=== PATIENT | female | born 1980 | race African-American/Black ===

== ENCOUNTER → 2016-12-16 | Outpatient (CLI) | payer MEDICAID ==
--- NOTE | 2016-12-17 08:22 | DI ---
Indication: ITS.REASON: M25.5611 RT KNEE PAIN PROCEDURE: MRI KNEE RIGHT W/O CONTRAST: Encounter: Initial Comparison: None Technique: Multiplanar multisequence MR imaging of the right knee was performed without contrast. Findings: Irregular tearing of the anterior horn lateral meniscus. The posterior horn appears intact. The medial meniscus is intact. The ACL and PCL are intact. The MCL and lateral collateral ligament complex are intact. The extensor mechanism is maintained. No acute fracture. Bone marrow signal intensity is unremarkable for age. The cartilage of the medial, lateral and patellofemoral compartments is normal. Small joint effusion. Tiny Allen's cyst. Muscular signal intensity is normal. Impression: Anterior horn lateral meniscal tear. .
== END ==
LOC: IMA 17:34
PROVIDERS: ATTEND Family Medicine
DX: S83.281A Other tear of lateral meniscus, current injury, right knee, initial encounter (principal); M25.561 Pain in right knee

== ENCOUNTER 2016-12-31 05:55 | Day surgery (SDC) | payer MEDICAID ==
[~2016-12-31] VITALS: Ht 157.5 cm; Wt 92.3 kg
[2016-12-31] VITALS (14 sets, daily range): BP systolic 129–176; BP diastolic 81–106; PULSE 76–98; RESP 16–28; TEMP 97.3–98.4; O2SAT 94–100; Ht 157.5 cm; Wt 92.3 kg
[~2016-12-31 05:55] MED LIST: LISI-621 PO
--- OUTSIDE RECORDS SUMMARY | 2016-12-31 05:59 | XMS REPORT ---
Author Author Татьяна Soriano Organization [employer] Address Unknown Phone Unavailable Care Team Providers Care Clicking Machine Operator Name Role Phone Татьяна Soriano Unavailable Allergies No Known Allergies Problems Problem Type Condition ICD-9 Code Onset Dates Condition Status Problem Fibromyalgia (Myalgia and Myositis) 729.1 Active Problem Unspecified myalgia and myositis 729.1 Active Problem Hypertension, unspecified (essential) 401.9 Active Problem Major Depressive Disorder 311 Active Medications No Known Medications Results No Known Results Summary Purpose [employer] Submission
--- OUTSIDE RECORDS SUMMARY | 2016-12-31 05:59 | XMS REPORT ---
Author Author Tobias Wells [facility] [employer] Address Unknown Phone Unavailable Care Team Providers Care Wire Web Worker Name Role Phone Tobias Wells CP Unavailable Allergies, Adverse Reactions, Alerts Substance Reaction Event Type N.K.D.A. Info Not Available Non Drug Allergy Problems Problem Type Condition ICD-9 Code Onset Dates Condition Status Assessment Major Depressive Disorder 311 Active Problem Fibromyalgia (Myalgia and Myositis) 729.1 Active Problem Unspecified myalgia and myositis 729.1 Active Problem Hypertension, unspecified (essential) 401.9 Active Assessment Fibromyalgia (Myalgia and Myositis) 729.1 Active Assessment Unspecified myalgia and myositis 729.1 Active Problem Major Depressive Disorder 311 Active Assessment Hypertension, unspecified (essential) 401.9 Active Medications Medication Code System Code Instructions Start Date End Date Status Dosage Celexa [facility] [address]-46 20 MG Orally Once a day Jun 22, 2014 Active 1 tablet Xanax [facility] [address]-84 1 MG Orally daily prn Active 1 tablet Hydrochlorothiazide [facility] [address]-90 25 MG Orally Once a day Active 1 tablet Toprol XL [facility] [address]-57 50 MG Orally Once a day Active 1 tablet HydrOXYzine HCl [facility] [address]-28 10 MG Orally at bedtime prn Active 1 tablet Gabapentin [facility] [address]-93 300 MG Orally Three times a day Jun 22, 2014 Active 1 capsule Lisinopril [facility] [address]-03 40 MG Orally Once a day Active 1 tablet Percocet [facility] [address]-88 10-325 MG Orally TID Active 1 tablet as needed Procedures Procedure Coding System Code Date Office Visit, New Pt., Level 3 CPT-4 18849 Jun 22, 2014 Vital Signs Date/Time: Jun 22, 2014 BMI 37.50 Index Weight 198lb 8oz lbs Height 61 in Blood Pressure Diastolic 93 mm Hg Blood Pressure Systolic 150 mm Hg Temperature 98.1 F Cardiac Monitoring Heart Rate 88 /min Results No Known Results Summary Purpose [employer] Submission
--- OUTSIDE RECORDS SUMMARY | 2016-12-31 05:59 | XMS REPORT | Referral Summary ---
Author Author [facility] Organization [facility] Address Unknown Phone Unavailable Care Team Providers Care Parachute Cushion Installer Name Role Phone No PCP, Pt States Primary Care Physician [phone] Encounter VC Date(s): 08/18/15 - 08/18/15 [facility] [address] [place] [address] [phone] Discharge Diagnosis: Pain, dental Discharge Disposition: 01-Home or Self Care Attending Physician: Rosendo Guerra MD Admitting Physician: Rosendo Guerra MD Vital Signs Most recent to 1 oldest [Reference Range]: Temperature Oral 37.3 degC [35.8-37.3 degC] (08/18/15 7:41 PM) Peripheral Pulse 88 bpm Rate [60-100 bpm] (08/18/15 7:41 PM) Respiratory Rate 16 br/min [14-20 br/min] (08/18/15 7:41 PM) Blood Pressure 186/113 mmHg [90-140/60-90 mmHg] *HI* (08/18/15 7:41 PM) SpO2 98 % (08/18/15 7:41 PM) Problem List Condition Effective Dates Status Health Status Informant HTN Active patient (hypertension)(Confi rmed) Allergies, Adverse Reactions, Alerts Substance Reaction Severity Status codeine Hives Mild Active Medications amoxicillin 500 mg oral tablet 500 mg 1 tabs, Oral, TID, X 10 days, # 30 tabs, 0 Refill(s) Start Date: 08/18/15 Stop Date: 08/28/15 Status: Ordered hydrochlorothiazide Oral, Daily, 0 Refill(s) Start Date: 05/01/15 Status: Ordered ibuprofen 800 mg oral tablet 800 mg 1 tabs, Oral, q8hr, # 30 tabs, 0 Refill(s) Start Date: 08/18/15 Status: Ordered lisinopril Oral, Daily, 0 Refill(s) Start Date: 05/01/15 Status: Ordered [place] 5 mg-325 mg oral tablet 1 tabs, Oral, q6hr, as needed for pain, # 15 tabs, 0 Refill(s) Start Date: 08/18/15 Stop Date: 08/25/15 Status: Ordered Results No data available for this section Immunizations No data available for this section Procedures No data available for this section Social History Social History Type Response Smoking Status Never smoker Assessment and Plan No data available for this section
--- OUTSIDE RECORDS SUMMARY | 2016-12-31 06:00 | XMS REPORT | Continuity of Care Document ---
Author Author [facility] Organization [facility] Address Unknown Phone Unavailable Allergies Active Description Code Type Severity Reaction Onset Reported/Identified Relationship to Patient Clinical Status Yes codeine codeine Drug Allergy Mild RASH 01/22/2011 Medications Problems Procedures Results Test Result Range CBC W/DIFF - 09/19/16 07:55 BASOPHIL # 0.0 k/cumm 0.0-0.2 BASOPHIL % 1 % 0-1 EOSINOPHIL # 0.0 k/cumm 0.1-0.5 EOSINOPHIL % 1 % 2-4 GRANULOCYTE # 3.7 k/cumm 2.0-9.0 GRANULOCYTE % 56 % 50-75 LYMPHOCYTE # 2.2 k/cumm 1.0-4.0 LYMPHOCYTE % 33 % 20-30 MEAN CELL HGB 28.8 pg 27.0-33.0 MEAN CELL HGB CONCENTRATION 33.1 g/dL 32.0-37.0 MEAN CELL VOLUME 87.2 fl 80.0-100.0 MONOCYTE # 0.7 k/cumm 0.1-1.0 MONOCYTE % 10 % 4-6 RED BLOOD CELL 4.75 m/cumm 4.00-6.00 RED CELL DISTRIBUTION WIDTH 13.4 % 11.0- 15.6 WHITE BLOOD CELL 6.6 k/cumm 5.0-10.0 HEMOGLOBIN 13.7 gm/dL 12.0-16.0 HEMATOCRIT 41.4 % 37.0-47.0 PLATELET COUNT 345 k/cumm 150-400 METABOLIC PANEL, BASIC - 09/19/16 07:55 POTASSIUM 4.5 mmol/L 3.5-5.3 EST GFR (MDRD) > 60 mL/min > 59 ANION GAP 10 mmol/L 5-15 EST CrCl (CG) > 60 mL/min > 59 GLUCOSE 89 mg/dL 70-99 CALCIUM 9.1 mg/dL 8.5-10.1 BLOOD UREA NITROGEN 12 mg/dL 7-20 CREATININE 0.8 mg/dL 0.6-1.0 SODIUM 139 mmol/L 135-148 CHLORIDE 107 mmol/L 98-110 CARBON DIOXIDE 22 mmol/L 21-32 D-DIMER QUANT - 09/19/16 07:55 D-DIMER QUANT < 150 ng/mL 0-229 TROPONIN I BEDSIDE - 09/19/16 08:06 METHOD Bedside TROPONIN I < 0.04 ng/mL < 0.11 TROPONIN I BEDSIDE - 09/19/16 10:45 METHOD Bedside TROPONIN I < 0.04 ng/mL < 0.11 Encounters ACCT No. Visit Date/Time Discharge Status Pt. Type Provider Facility Loc./Unit Complaint [id number] 09/19/2016 07:38:00 2016 11:07:00 DIS Emergency Patricia TOLEDO, Yassine [facility] [id number] 02/12/2015 01:19:00 2014 02:14:00 DIS Emergency Néstor TOLEDO, Tobias Bills [facility]
--- OUTSIDE RECORDS SUMMARY | 2016-12-31 06:00 | XMS REPORT | Referral Summary ---
Author Author [facility] Organization [facility] Address Unknown Phone Unavailable Care Team Providers Care House Painter Name Role Phone No PCP, Pt States Primary Care Physician [phone] Encounter VC Date(s): 05/01/15 - 05/01/15 [facility] [address] [place] [address] Final: PAIN IN JOINT INVOLVING LOWER LEG Discharge Disposition: Against Medical Advice Attending Physician: Rosendo Guerra MD Admitting Physician: Rosendo Guerra MD Vital Signs Most recent to 1 oldest [Reference Range]: Temperature Oral 37.4 degC [35.8-37.3 degC] *HI* (05/01/15 6:25 PM) Peripheral Pulse 93 bpm Rate [60-100 bpm] (05/01/15 6:25 PM) Respiratory Rate 24 br/min [14-20 br/min] *HI* (05/01/15 6:25 PM) Blood Pressure 169/119 mmHg [90-140/60-90 mmHg] *HI* (05/01/15 6:25 PM) SpO2 99 % (05/01/15 6:25 PM) Problem List Condition Effective Dates Status Health Status Informant HTN Active patient (hypertension)(Confi rmed) Allergies, Adverse Reactions, Alerts Substance Reaction Severity Status codeine Hives Mild Active Medications hydrochlorothiazide Oral, Daily, 0 Refill(s) Start Date: 05/01/15 Status: Ordered ibuprofen 800 mg oral tablet 800 mg 1 tabs, Oral, q8hr, # 30 tabs, 0 Refill(s) Start Date: 08/18/15 Status: Ordered lisinopril Oral, Daily, 0 Refill(s) Start Date: 05/01/15 Status: Ordered Results No data available for this section Immunizations No data available for this section Procedures No data available for this section Social History Social History Type Response Smoking Status Never smoker Assessment and Plan No data available for this section
[2016-12-31] MEDS ORDERED: ACET-2723 PO (06:46)
[2016-12-31] MEDS ORDERED: LR 1,000 ML IV SCH (07:00)
[2016-12-31] MEDS ORDERED: LIDOCAINE 1% (10mg/ml) 2ml SDV INJ ONE (07:00)
[2016-12-31] MEDS ORDERED: CEFAZOLIN 1 GRAM INJECTION IV ONE (08:00)
--- NOTE | 2016-12-31 08:21 | ANESPREOP ---
Anesthesia Record Date and Time DATE: 12/31/16 TIME: 08:19 Pre-Op Diagnosis right knee meniscus tear Proposed Surgical Procedure RT KNEE SCOPE NPO since: mn Allergies: Coded Allergies: acetaminophen (Verified Allergy, Mild, RASH, 12/31/16) CAN TAKE TYLENOL codeine (Verified Allergy, Mild, RASH, 12/31/16) hydrocodone (Verified Allergy, Mild, RASH, 12/31/16) CAN TAKE TYLENOL Ht/Wt/BMI Height: 5 ' 2.00 " Weight: 92.300 kg BMI: 37.2 kg/m2 Vital Signs Date Time Temp Pulse Resp B/P Pulse Ox O2 Delivery O2 Flow Rate FiO2 12/31/16 07:49 98.2 12/31/16 07:21 176/81 12/31/16 06:34 76 16 97 Room Air Medications Inpatient Medications Current Medications Medications (Trade) Dose Ordered Sig/Delmi Start Time Stop Time Status Last Admin Dose Admin Lactated Ringer's (Lactated Ringers) 1,000 ml @ 50 mls/hr Q20H 12/31/16 07:00 12/31/16 07:02 50 MLS/HR Acetaminophen (Tylenol Extra Strength) 500 Mg Tablet, 1-2 TAB PO Q6H PRN for PAIN/FEVER, (Reported) Last Taken: on 12/29/16 Lisinopril (Lisinopril) 20 Mg Tablet, 2 TAB PO DAILY , (Reported) Last Taken: on 12/30/16 0700 Currently on Beta Han: No Medical/Surgical History Anesthesia PMH: Reports: *Hypertension, Arthritis, Denies: *Diabetes, Anesthesia Reactions (NO AIRWAY ISSUES), Cancer, Clotting Problems, Glaucoma, Malignant Hyperthermia, Renal Disease, Sleep Apnea, Thyroid Disease Smoking Status: Never smoker Alcohol Intake: none HX of Last Menstrual Period: DECEMBER 2016 Past Surgical History Orthopedic Surgeries: Abdominal Surgeries: Genitourinary Surgeries: Cardiac Surgeries: Endocrine Surgeries: Reproductive Surgeries: Yes - C- SESCTION X2 Neurological Surgeries: Ear Surgeries: Nose Surgeries: Throat Surgeries: Other Surgeries: Anesthesia Adverse Reactions: FOUND none Family Hx of Anesthesia Advers: none Hx of Motion Sickness: No Pertinent Findings Test 12/31/16 06:24 Urine Test Negative (NEGATIVE) EKG Rhythm: Sinus Rhythm Physical Exam Respiratory: Bilat breath sounds equal, Lungs clear Cardiovascular: FOUND Regular rate, rhythm, FOUND No murmur Airway Assessment Mallampati Score: I TMD: 3 Fingerbreadths Neck Extension: Good Overall Assessment: No Airway Concerns ASA: 2 Plan Anesthesia Plan: TIVA, LMA, GETA Discussion Discussed risks/options/alternatives of anesthesia and questions answered. Patient consents. Nursing pain assessment noted. Attestation Statement Prior to the delivery of any anesthetic medication, I examined the patient, developed the plan, obtained the patient's consent and discussed the risk and benefits of the procedure with the patient/guardian. PURNIMA ELIZABETH NEEDLE STRAIGHTENER December 31, 2016 08:21
[2016-12-31] MEDS ORDERED: PROPOFOL 500mg 50 ML IV ONE (10:29)
[2016-12-31] MEDS ORDERED: FENTANYL 100mcg/2ml INJECTION ONE ×2 (10:30→11:08)
[2016-12-31] MEDS ORDERED: KETAMINE 500mg/10ml INJECTION ONE (10:31)
[2016-12-31] MEDS ORDERED: PROPOFOL 200mg 20 ML IV ONE ×3 (10:32→11:14)
[2016-12-31] MEDS ORDERED: BUPIVACAINE 0.25% (2.5mg/ml) INJ 30ml SDV ONE (10:41)
[2016-12-31] MEDS ORDERED: MEPERIDINE 100 mg/ml VIAL ONE (10:41)
[2016-12-31] MEDS ORDERED: MIDAZOLAM 2mg/2ml INJECTION ONE (10:45)
[2016-12-31] MEDS ORDERED: GLYCOPYRROLATE 0.4mg/2ml INJECTION ONE (10:54)
[2016-12-31] MEDS ORDERED: LABETALOL 20mg/4ml INJECTION IV ONE (11:09)
[2016-12-31] MEDS ORDERED: TRAM50TA53 PO (11:25)
[2016-12-31] MEDS ORDERED: ONDA4TAB4 PO (11:25)
[2016-12-31] MEDS ORDERED: MELO7.5T12 PO (11:25)
--- NOTE | 2016-12-31 11:26 | PDPROCED ---
Immediate Operative Note DATE: 12/31/16 TIME: 11:26 Preop Diagnosis: RIGHT KNEE LMT Postop Diagnosis: Right knee LMT Surgical Procedures: R Knee Arthroscopy (PLM, limited synovectomy) Surgeon: [place] Nurseryperson: LINDSEY Fox Anesthesia: General Complications: None Estimated Blood Loss see anesthesia DORETHA CARDONA December 31, 2016 11:26
[2016-12-31] MEDS ORDERED: TRAMADOL 50 MG TABLET PO PRN (12:00)
--- NOTE | 2016-12-31 12:01 | ANESPO ---
Post-Op Note Date 12/31/16 Time: 12:00 Status Pt Participated in Evaluation: Pt participated in person Vital Signs Date Time Temp Pulse Resp B/P Pulse Ox O2 Delivery O2 Flow Rate FiO2 12/31/16 11:56 98.2 96 26 129/90 95 Room Air 12/31/16 11:50 6.00 Respiratory Function: Airway patent Cardiovascular Function: Regular pulse Mental Status: Alert/oriented Pain Level Intensity: 0 Hydration: IV infusing Complications during Recovery None apparent Follow-Up Instructions Instructions Per Surgeon HELADIO MORGAN CRNA December 31, 2016 12:01
--- NOTE | 2017-01-01 10:16 | OPNOTEF ---
DATE OF OPERATION 12/31/2016 PREOPERATIVE DIAGNOSIS Right knee lateral meniscus tear. POSTOPERATIVE DIAGNOSES 1. Right knee anterior horn lateral meniscus tear (anterior horn avulsion). 2. Right knee anterior compartment synovitis. PROCEDURE 1. Right knee arthroscopic partial lateral meniscectomy. 2. Right knee arthroscopic limited synovectomy, anterior compartment. SURGEON Moises Talamantes MD IRON CARRIER Adrian Liu PA-C ANESTHESIA TIVA FLUIDS Please refer to Anesthesia chart. EBL Minimal. TOURNIQUET Please refer to Anesthesia chart. COMPLICATIONS None. CONDITION Stable to Recovery Room. DESCRIPTION OF PROCEDURE The patient was identified in the preoperative holding area. The operative extremity was identified and appropriately marked. Risks, benefits, alternatives and potential complications were discussed and informed consent was obtained. The patient was taken to the operating theatre, placed supine on the operating table. Appropriate cardiorespiratory monitors were applied. TIVA anesthesia was administered. A tourniquet was applied high on the right thigh though not yet inflated. The right lower extremity was sterilely prepped and draped in the usual fashion. Surgical time-out was performed, confirmed with myself, the director data and circulating nurse. Preoperative antibiotics were given. Examination under anesthesia revealed full passive range of motion of the right knee. No evidence of instability. The leg was elevated and the tourniquet was inflated. A standard inferolateral portal was established. The arthroscope was inserted and the knee was insufflated with saline. Needle localization was utilized to establish an inferomedial portal and diagnostic examination ensued. Suprapatellar pouch, medial and lateral gutters were found to be free of loose bodies or debris. While visualizing through the lateral gutter, we could see displaced meniscus in the anterior field of view. The posterior aspect of the meniscus and popliteal hiatus otherwise appeared normal when visualized from the lateral gutter. The medial compartment was then entered, noting normal medial articular cartilage and a normal medial meniscus. The intercondylar notch was obscured by the ligamentum as well as fat pad. The ligamentum was released with a shaver and a portion of the fat pad was debrided with the shaver as well. We then turned our attention to the lateral compartment as the knee was moved to a figure-four position. At this time we could see that the anterior horn of the lateral meniscus had been avulsed and detached from its synovial attachment throughout the anterior horn. It was still attached at the body. There was a radial split at the body as well. Unfortunately this was not a repairable type of a lesion. Additional synovectomy was performed anteriorly to aid in visualization of this fragment while trying to ascertain repairability of the fragment. The posterior horn and posterior root of the lateral meniscus were otherwise intact. A series of bereket and biters were used to resect the anterior horn of the meniscus in its entirety. Cartilage surface of the lateral compartment showed some degenerative change, particularly in the posterior aspect of the lateral tibial plateau. The knee was then copiously lavaged, irrigated and drained. All arthroscopic instruments were removed. Portals were closed with nylon sutures. Marcaine was injected around the portal sites and Marcaine cocktail in the joint. Sterile dressings were applied followed by an Dez bandage. Tourniquet was deflated. The patient was awakened from anesthesia and taken to the recovery room in stable and satisfactory condition. ANGELO
== END 2016-12-31 12:50 | disposition home or self-care (01) ==
LOC: NSC 05:55
PROVIDERS: ATTEND Orthopaedic Surgery
DX: S83.281A Other tear of lateral meniscus, current injury, right knee, initial encounter (principal); M65.861 Other synovitis and tenosynovitis, right lower leg; Z88.5 Allergy status to narcotic agent; X58.XXXA Exposure to other specified factors, initial encounter
CPT/HCPCS: 29881; 81025; J0690; J2175; J2250; J2704; J3010; J7120; S0020